=== PATIENT | female | born 1985 | race Asian ===

== ENCOUNTER 2017-09-11 07:23 | Inpatient (IN) | payer BC ==
[~2017-09-11] VITALS: Ht 165.1 cm; Wt 73.0 kg
[2017-09-11] VITALS (14 sets, daily range): BP systolic 112–147; BP diastolic 62–87
[2017-09-11 09:26] LABS: BASOPHIL (%) 0.3 % (0-1); EOSINOPHIL COUNT 0.1 K/uL (0-0.3); HEMOGLOBIN 11.9 G/DL (11.9-15.5); IMMATURE GRANULOCYTE (%) 0.3 % (0.0-0.7); LYMPHOCYTE (%) 17.8 % (15-42); LYMPHOCYTE COUNT 1.2 K/uL (1.0-2.8); MCH 28.1 PG (29.0-34.0); MCHC 32.2 G/DL (30.0-36.0); MCV 87.5 FL (83-99); MONOCYTE (%) 6.5 % (3-12); MONOCYTE COUNT 0.4 K/uL (0-0.8); NEUTROPHIL (%) 73.1 % (45-76); NEUTROPHIL COUNT 4.7 K/uL (1.8-6.4); PLATELET COUNT 222 K/uL (156-360); RBC DIS.WIDTH-CV 14.5 % (11.8-14.6); RBC DIS.WIDTH-SD 46.5 % (39-53); RED BLOOD COUNT 4.23 M/uL (3.80-5.20); WHITE BLOOD COUNT 6.5 K/uL (4.1-10.2)
[2017-09-12] VITALS (8 sets, daily range): BP systolic 104–122; BP diastolic 51–67
[2017-09-13 07:28] VITALS: BP 109/67
[2017-09-13 07:51] LABS: BASOPHIL (%) 0.2 % (0-1); EOSINOPHIL (%) 1.8 % (0-5); EOSINOPHIL COUNT 0.2 K/uL (0-0.3); HEMATOCRIT 29.8 % (36.0-46.0); IMMATURE GRANULOCYTE (%) 0.4 % (0.0-0.7); LYMPHOCYTE (%) 13.7 % (15-42); LYMPHOCYTE COUNT 1.3 K/uL (1.0-2.8); MCH 27.7 PG (29.0-34.0); MCHC 31.2 G/DL (30.0-36.0); MCV 88.7 FL (83-99); MONOCYTE (%) 5.1 % (3-12); MONOCYTE COUNT 0.5 K/uL (0-0.8); NEUTROPHIL (%) 78.8 % (45-76); NEUTROPHIL COUNT 7.4 K/uL (1.8-6.4); PLATELET COUNT 170 K/uL (156-360); RBC DIS.WIDTH-CV 14.8 % (11.8-14.6); RBC DIS.WIDTH-SD 47.4 % (39-53); WHITE BLOOD COUNT 9.4 K/uL (4.1-10.2)
[2017-09-13 08:45] LABS: HEMOGLOBIN 9.3 G/DL (11.9-15.5); RED BLOOD COUNT 3.36 M/uL (3.80-5.20)
[2017-09-13 11:05] VITALS: BP 114/66
[2017-09-13 14:44] VITALS: BP 113/63
[2017-09-14] VITALS (7 sets, daily range): BP systolic 106–129; BP diastolic 55–83
[2017-09-15 03:00] VITALS: BP 109/59
[2017-09-15 07:17] VITALS: BP 124/79
[2017-09-15 13:02] VITALS: BP 113/62
[2017-09-15 19:00] VITALS: BP 134/64
[2017-09-15 23:00] VITALS: BP 129/74
[2017-09-16 03:00] VITALS: BP 117/65
[2017-09-16] MEDS ORDERED: FERROUS SULFAT325 MG PO (10:07)
[2017-09-16] MEDS ORDERED: ENDOCET 5-3251 EACH PO (10:07)
[2017-09-16] MEDS ORDERED: IBUPROFEN800 MG PO (10:07)
== END 2017-09-16 13:25 | disposition home or self-care (01) | DRG 765 ==
LOC: LDRP-OP → 2WEST 07:24 → LDRP-OP 08:52 → 2WEST 09-12 00:22 → LDRP-OP 10-05 13:30
PROVIDERS: Obstetrics & Gynecology
PROC: 10907ZC Drainage of Amniotic Fluid, Therapeutic from Products of Conception, Via Natural or Artificial Opening (ICD-10-PCS; 2017-09-11)
PROC: 3E0P7GC Introduction of Other Therapeutic Substance into Female Reproductive, Via Natural or Artificial Opening (ICD-10-PCS; 2017-09-11)
PROC: 10D00Z1 Extraction of Products of Conception, Low, Open Approach (ICD-10-PCS; principal; 2017-09-12)
DX: O32.1XX1 Maternal care for breech presentation, fetus 1 (principal); D62 Acute posthemorrhagic anemia; O99.413 Diseases of the circulatory system complicating pregnancy, third trimester; O48.0 Post-term pregnancy; Z3A.41 41 weeks gestation of pregnancy; Z37.0 Single live birth; O99.02 Anemia complicating childbirth; O77.0 Labor and delivery complicated by meconium in amniotic fluid; O76 Abnormality in fetal heart rate and rhythm complicating labor and delivery; O12.04 Gestational edema, complicating childbirth; M54.5 Low back pain; O26.893 Other specified pregnancy related conditions, third trimester; I45.6 Pre-excitation syndrome; O61.0 Failed medical induction of labor
CPT/HCPCS: 85025; 86850; 86900; 86901; 88307; G0378; J0690; J2274; J7120